=== PATIENT | female | born 2000 | race Caucasian/White ===

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

== ENCOUNTER 2018-05-30 20:00 | Emergency (ER) | payer BC ==
--- NOTE | 2018-05-30 20:19 | UC ---
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. She tells me that about 2 hours ago she was on her way to the [place] to have dinner and began to feel lightheaded and have "tunnel vision ". She sat down and felt better. Ate something and felt even better. She told her mother about these symptoms and her mom suggested pt be evaluated. Pt tells me that she feels fine now except has a mild headache. She tells me that she has a hx of anxiety and has had vertigo, dizziness, headache, vision changes, palpitations, chest pain, SOB, and near-syncope in the past. Has seen specialists and her PCP multiple times with negative work ups. Has had CT scanning, brain MRI, cardiac monitors, EKGs, blood testing, and hospital visits which - per pt - have all been normal. Today she tells me that she thinks her "sugar gets low" when it is around time to eat and this is what causes her symptoms. She denies fever, chills, recent illness, SOB, chest pain/palpitations , abdominal pain, n/v/d/c, dysuria, vaginal bleeding/discharge. - History Of Current Complaint Chief Complaint: UCGeneralIllness Stated Complaint: DIZZY Time Seen by Provider: 05/30/18 20:18 Hx Obtained From: Patient Hx Last Menstrual Period: control Onset/Duration: Sudden Onset Severity Initially: Moderate Severity Currently: Mild Pain Intensity: 3 Pain Scale Used: 0-10 Numeric - Allergies/Home Medications Allergies/Adverse Reactions: Allergies Allergy/AdvReac Type Severity Reaction Status Date / Time No Known Allergies Allergy Verified 05/30/18 20:16 Home Medications: Home Medications Ibuprofen TAB* [Advil TAB*] 200 mg PO Q6H PRN 05/30/18 [History Confirmed ] Norethindrone-E.estradiol-Iron [Taytulla 1-20 mg-Mcg(24)] 1 cap PO DAILY [History Confirmed 05/30/18] PMH/Surg Hx/FS Hx/Imm Hx - Additional Past Medical History Additional PMH: Anxiety Vertigo - Surgical History Surgical History: None - Family History Known Family History: Positive: Diabetes, Other - Negative for CAD, CVA, aneurysm, or sudden before age 50 Negative: Cardiac Disease, Hypertension - Social History Occupation: Student Lives: With Family Alcohol Use: None Substance Use Type: None Smoking Status (MU): Never Smoked Tobacco Review of Systems All Other Systems Reviewed And Are Negative: Yes Constitutional: Positive: Negative Skin: Positive: Negative Eyes: Positive: Negative ENT: Positive: Negative Respiratory: Positive: Negative Cardiovascular: Positive: Negative Gastrointestinal: Positive: Negative Genitourinary: Positive: Negative Motor: Positive: Negative Neurovascular: Positive: Negative Musculoskeletal: Positive: Negative Neurological: Positive: Headache Psychological: Positive: Negative Physical Exam - Summary Physical Exam Summary: GENERAL: NAD. WDWN. No pain distress. SKIN: No rashes, sores, ulcers, masses, lesions. HEENT: Head: AT/NC. Eyes: PERRLA. EOM intact. Conjunctiva clear without inflammation or discharge. Ears: Hearing grossly normal. TMs intact, no bulging, erythema, or edema. No hemotympanum Nose: Nasal mucosa pink and moist. NTTP maxillary and frontal sinus. Throat: Posterior oropharynx without exudates, erythema, or tonsillar enlargement. Uvula midline. NECK: Supple. Nontender. FROM CHEST: CTAB. No r/r/w. No accessory muscle use. Breathing comfortably and in no distress. CV: RRR. Without m/r/g. Pulses intact. Brisk cap refill. ABDOMEN: Soft. NTTP. Bowel sounds present MSK: FROM in B/L UEs and LEs with symmetric strength. NEURO: A&Ox3. 3 word recall, remote, recent memory, ability to follow 2-step directions, and attention intact. CN: II: Peripheral allan intact. Vision normal. III, IV, : EOMI. No nystagmus. PERRLA. V: Sensations intact and symmetric. Opens mouth and clenches teeth. VII: No facial asymmetry. Forehead wrinkles. Grins, shuts eyes, frowns, puffs cheeks. VIII: Hearing intact to finger rub. IX, X: Swallows and coughs. Uvula midline. XI: Shrugs shoulders. Turns head against resistance. XII: No tongue deviation [id number] are intact. Gait with normal base. Romberg: maintains balance, no pronator drift. Normal speech. No facial drooping. PSYCH: Age appropriate behavior. Triage Information Reviewed: Yes Vital Signs: Initial Vital Signs Temp 98.7 F 05/30/18 20:10 Pulse 97 05/30/18 20:10 Resp 16 05/30/18 20:10 BP 144/96 05/30/18 20:10 Pulse Ox 99 05/30/18 20:10 Orthostatic vitals: Lyin/76 HR 100 Sittin/77 HR 94 Standin/80 HR 100 Vital Signs Reviewed: Yes Dizzy Course/Dx - Course Course Of Treatment: EKbpm NSR. No ST changes as read by Dr. Cottrell. Exam normal and pt is feeling better. POC glucose 78 and orthostatic vitals WNL. Pt has had an extensive workup for similar symptoms multiple times in the past. I had a long discussion with her that her exam and workup tonight are normal, but further evaluation could be done in the ED. She did not want to do this and requested lab testing, specifically for lyme disease as her father has this and she is concerned about this. Will draw for CBC, CMP, TSH, and lyme. Strongly encouraged her to f/u with a PCP locally or back home as soon as possible for further evaluation of her symptoms. Advised to go to ED if symptoms return or worsen. Pt voiced understanding and is agreeable to the plan. - Differential Dx/Diagnosis Provider Diagnosis: Dizziness, Near syncope Discharge - Sign-Out/Discharge Documenting (check all that apply): Patient Departure All imaging exams completed and their final reports reviewed: No Studies - Discharge Plan Condition: Stable Disposition: HOME Patient Education Materials: Near Syncope (ED) Referrals: No Primary Care Phys,NOPCP [Primary Care Provider] - Additional Instructions: If you develop a fever, shortness of breath, chest pain, new or worsening symptoms - please call your PCP or go to the ED. I strongly encourage you to follow up with a local primary doctor or your primary doctor at home for further testing of your symptoms - Billing Disposition and Condition Condition: STABLE Disposition: Home
[2018-05-30 20:57] VITALS: BP 142/80
[2018-05-31 11:08] LABS: ABS Basophils 0.1 10^3/ul (0-0.2); ABS Eosinophils 0 10^3/ul (0-0.6); ABS Lymphocytes 2.9 10^3/ul (1.0-4.8); ABS Monocytes 0.4 10^3/ul (0-0.8); ABS Neutrophils 6.4 10^3/ul (1.5-7.7); ABS Nucleated RBC 0 10^3/ul; Eosinophil % 0.4 %; Hematocrit 39 % (33-41); Hemoglobin 13.1 g/dL (12.0-16.0); Lymphocyte % 29.2 %; Mean Corpuscular HGB Conc 34 g/dL (31-36); Mean Corpuscular Hemoglobin 28 pg (27-31); Mean Corpuscular Volume 84 fL (80-97); Mean Platelet Volume 8.2 fL (7.4-10.4); Nucleated Red Blood Cells % 0; Platelet Count 341 10^3/uL (150-450); Red Blood Count 4.66 10^6 /uL (3.70-4.87); Red Cell Distribution Width 13 % (10.5-15); White Blood Count 9.8 10^3/uL (3.5-10.8)
[2018-05-31 11:23] LABS: BUN/Creatinine Ratio 16.9 (8-20); Potassium 3.9 mmol/L (3.5-5.0)
[2018-05-31 11:24] LABS: Albumin 4.5 g/dL (3.2-5.2); Albumin/Globulin Ratio 1.7 (1-3); Calcium 9.7 mg/dL (8.6-10.3); EGFR African American 142.1 (>60); EGFR Non-African American 117.4 (>60); Globulin 2.6 g/dL (2-4); Total Bilirubin 0.3 mg/dL (0.2-1.0); Total Protein 7.1 g/dL (6.4-8.9)
[2018-05-31 11:35] LABS: TSH (Thyroid Stimulating Horm) 1.34 mcIU/mL (0.34-5.60)
== END 2018-05-30 21:11 | disposition home or self-care (01) ==
LOC: UCEAST 20:00
DX: R42 Dizziness and giddiness (principal); R55 Syncope and collapse; R51 Headache; F41.9 Anxiety disorder, unspecified
CPT/HCPCS: 36415; 80053; 84443; 85025; 86618; 93005; 99211; G0463